=== PATIENT | female | born 1980 | race Caucasian/White ===

== ENCOUNTER → 2018-08-11 | Outpatient (CLI) | payer OTHER ==
--- NOTE | 2018-08-11 14:05 | Pulmonary Function Test ---
Pulmonary Function Test Date of Procedure:: 08/11/18 INDICATION:: Dyspnea Referring Provider: Dr. Mondragon Soup Mixer: Tiffanie Sinclair [employer] - Report Spirometry: FVC 3.34 L 103% FEV1 2.46 L 90% FEV1/FVC % 74 predicted 85 FEF 25-75% 1.84 L 52% Impression: Mild obstructive ventilatory defect is implied by the decrease in the FEF 25-75%
== END ==
LOC: RT 09:17
DX: J44.9 Chronic obstructive pulmonary disease, unspecified (principal); J45.909 Unspecified asthma, uncomplicated; M79.7 Fibromyalgia
CPT/HCPCS: 94010